=== PATIENT | female | born 1985 | race Caucasian/White ===

== ENCOUNTER 2017-01-29 17:02 | Emergency (ER) | payer OTHER ==
[~2017-01-29] VITALS: Ht 180.3 cm; Wt 80.0 kg
[~2017-01-29 17:02] MED LIST: ADVIL200 M3 PO; NOHOMEMEDS; VENTOLIN HFA18 GM IH; ZITHROMAX Z-PA250 MG PO
[2017-01-29 18:16] VITALS: BP 132/67
== END 2017-01-29 18:24 | disposition home or self-care (01) ==
LOC: EME 17:02
PROC: 0HQ1XZZ Repair Face Skin, External Approach (ICD-10-PCS; principal; 2017-01-29)
DX: S01.112A Laceration without foreign body of left eyelid and periocular area, initial encounter (principal); F17.200 Nicotine dependence, unspecified, uncomplicated; V47.0XXA Car driver injured in collision with fixed or stationary object in nontraffic accident, initial encounter
CPT/HCPCS: 99281; 99283